=== PATIENT | female | born 1965 | race Hispanic/Latino ===

== ENCOUNTER → 2019-02-27 | Outpatient (CLI) | payer OTHER ==
[~2019-02-27] MED LIST: REGADENOSON 0.4 MG/5 ML SYR IV ONE
== END ==
LOC: NM 08:41
PROVIDERS: ATTEND Internal Medicine Interventional Cardiology
DX: I20.9 Angina pectoris, unspecified (principal)
CPT/HCPCS: 78452; 93017; A9502; J2785

== ENCOUNTER 2019-07-16 16:13 | Inpatient (IN) | payer OTHER ==
[~2019-07-16] VITALS: Ht 162.6 cm; Wt 156.0 kg
[2019-07-16] MEDS ORDERED: ASPIRIN 81 MG CHEW TAB PO ONE ×2 (17:00→19:15)
[2019-07-16 17:17] LABS: BASOPHILS # (AUTO) 0.1 (0.0-0.1); BASOPHILS % 0.4 % (0.0-1.0); EOSINOPHILS # (AUTO) 0.3 (0.0-0.4); EOSINOPHILS % 1.4 % (0.0-6.0); HEMATOCRIT 45.3 % (34.2-44.1); HEMOGLOBIN 14.7 g/dL (12.0-16.0); LYMPHOCYTES # (AUTO) 3.3 (1.0-3.2); LYMPHOCYTES % 17.1 % (18.0-39.1); MEAN CORPUSCULAR HEMOGLOBIN 29.5 pg (28-32); MEAN CORPUSCULAR HGB CONC 32.5 g/dL (31-35); MONOCYTES # (AUTO) 1.3 (0.2-0.8); MONOCYTES % 6.8 % (4.4-11.3); NEUTROPHILS # (AUTO) 14.3 (2.1-6.9); NEUTROPHILS % 73.6 % (38.7-80.0); PLATELET COUNT 378 x10e3/uL (140-360); RED BLOOD COUNT 4.98 x10e6/uL (3.6-5.1); RED CELL DISTRIBUTION WIDTH 14.2 % (11.7-14.4)
[2019-07-16 17:20] LABS: BILIRUBIN,URINE NEGATIVE (NEGATIVE); CLARITY,URINE SL CLOUDY (CLEAR); COLOR,URINE YELLOW (YELLOW); KETONES,URINE NEGATIVE (NEGATIVE); LEUKOCYTE ESTERASE ,URINE NEGATIVE (NEGATIVE); NITRITE,URINE NEGATIVE (NEGATIVE); PROTEIN,URINE DIPSTICK NEGATIVE (NEGATIVE); URINE UROBILINOGEN 1 mg/dL (0.2 - 1)
[2019-07-16 17:22] LABS: INR 0.93; PARTIAL THROMBOPLASTIN TIME 28.1 seconds (23.8-35.5)
[2019-07-16 17:30] LABS: ALANINE AMINOTRANSFERASE 26 IU/L (0-55); ALBUMIN 3.1 g/dL (3.5-5.0); ALBUMIN/GLOBULIN RATIO 0.7 (0.8-2.0); ALKALINE PHOSPHATASE 73 IU/L (40-150); ANION GAP 11.8 mmol/L (8-16); BLOOD UREA NITROGEN 11 mg/dL (7-26); BUN/CREATININE RATIO 10 (6-25); CALCIUM 10.2 mg/dL (8.4-10.2); CARBON DIOXIDE 29 mmol/L (22-29); CHLORIDE 99 mmol/L (98-107); CREATINE KINASE 198 IU/L (29-168); CREATININE, SERUM 1.09 mg/dL (0.57-1.11); EST GLOMERULAR FILTRATION RATE 53 ML/MIN (60-); GLUCOSE 131 mg/dL (74-118); POTASSIUM 3.8 mmol/L (3.5-5.1); SODIUM 136 mmol/L (136-145)
[2019-07-16 17:34] LABS: BACTERIA,URINE MANY /HPF; EPITHELIAL CELLS,URINE MODERATE /LPF
--- NOTE | 2019-07-16 18:11 | Diagnostic Imaging Report ---
Examination: Single AP view of the chest. COMPARISON: None. INDICATION: Chest pain DISCUSSION: Lines/tubes: None. Lungs: The lungs are well inflated and clear. No pneumonia or pulmonary edema. Pleura: No pleural effusion or pneumothorax. Heart and mediastinum: The heart and the mediastinum are unremarkable. Bones and soft tissues: No acute bony abnormalities. IMPRESSION: 1. No acute cardiopulmonary abnormalities. Signed by: Dr. Gamaliel Stinson M.D. on 07/16/2019 6:08 PM
[2019-07-16] MEDS ORDERED: ONDANSETRON HCL INJ 2MG/ML 2ML 2 MG/ML VIAL IV PRN (19:15)
[2019-07-16] MEDS: SODIUM CHLORIDE 0.9% 1000ML 1,000 ML IV SCH (20:12)
--- NOTE | 2019-07-16 23:55 | NUR ---
PT PLACED ON HOSPITAL BED FOR COMFORT AND PRESSURE ULCER PREVENTION.
[2019-07-17] VITALS (7 sets, daily range): BP systolic 101–114; BP diastolic 56–69
--- NOTE | 2019-07-17 00:03 | NUR ---
CALLED GAMING CASHIER TO CALL DOPPLER
--- NOTE | 2019-07-17 01:11 | NUR ---
LIFE MANAGER AT BEDSIDE FOR LT WRIST ARTERIAL DOPPLER SONOGRAM AT THIS TIME.
[2019-07-17 03:56] LABS: CREATINE KINASE 173 IU/L (29-168)
--- NOTE | 2019-07-17 06:28 | Diagnostic Imaging Report ---
Examination: Single AP view of the chest. COMPARISON: 07/16/2019. INDICATION: Chest pain DISCUSSION: Lines/tubes: None. Lungs: Bilateral hypoinflation with crowding of the pulmonary vasculature. No pneumonia or pulmonary edema. Pleura: No pleural effusion or pneumothorax. Heart and mediastinum: The heart and the mediastinum are magnified by portable technique and suboptimal inspiration. Bones and soft tissues: No acute bony abnormalities. Degenerative changes in the thoracic spine. IMPRESSION: 1. No acute thoracic abnormality allowing for limitations of portable technique and suboptimal inspiration. Signed by: Dr. Opal Berry M.D. on 07/17/2019 6:24 AM
[2019-07-17 07:24] LABS: BASOPHILS # (AUTO) 0.1 (0.0-0.1); BASOPHILS % 0.7 % (0.0-1.0); EOSINOPHILS # (AUTO) 0.4 (0.0-0.4); EOSINOPHILS % 2.8 % (0.0-6.0); HEMATOCRIT 44.2 % (34.2-44.1); HEMOGLOBIN 14.1 g/dL (12.0-16.0); LYMPHOCYTES # (AUTO) 3.5 (1.0-3.2); LYMPHOCYTES % 24.5 % (18.0-39.1); MEAN CORPUSCULAR HGB CONC 31.9 g/dL (31-35); MEAN CORPUSCULAR VOLUME 90.9 fL (81-99); MONOCYTES # (AUTO) 1.1 (0.2-0.8); MONOCYTES % 7.4 % (4.4-11.3); NEUTROPHILS # (AUTO) 9.1 (2.1-6.9); PLATELET COUNT 344 x10e3/uL (140-360); RED BLOOD COUNT 4.86 x10e6/uL (3.6-5.1); RED CELL DISTRIBUTION WIDTH 14.1 % (11.7-14.4)
[2019-07-17 07:37] LABS: INR 0.95; PROTHROMBIN TIME 13.2 seconds (11.9-14.5)
[2019-07-17 07:38] LABS: PARTIAL THROMBOPLASTIN TIME 30.4 seconds (23.8-35.5)
[2019-07-17 07:44] LABS: CREATINE KINASE 177 IU/L (29-168)
[2019-07-17 08:09] LABS: ANION GAP 11.8 mmol/L (8-16); BLOOD UREA NITROGEN 9 mg/dL (7-26); BUN/CREATININE RATIO 10 (6-25); CARBON DIOXIDE 25 mmol/L (22-29); CHLORIDE 103 mmol/L (98-107); CREATININE, SERUM 0.87 mg/dL (0.57-1.11); EST GLOMERULAR FILTRATION RATE > 60 ML/MIN (60-); GLUCOSE 112 mg/dL (74-118); POTASSIUM 3.8 mmol/L (3.5-5.1); SODIUM 136 mmol/L (136-145)
[2019-07-17] MEDS ORDERED: GABAPENTIN800 MG (08:11)
[2019-07-17] MEDS: SODIUM CHLORIDE 0.9% 1000ML 1,000 ML IV SCH ×2 (08:25→20:55)
--- NOTE | 2019-07-17 14:50 | NUR ---
Visit made by the Spiritual Care Department Pastoral Visitor, Dottie Linda. PV provided pastoral presence, prayer, hospitality, and supportive listening. Pastoral Visitor informed pt/family of the scope of [employer] and availability. VAMSHI MENDEZ [employer] Spiritual Care Department O: [phone] Pager: [phone] ([phone] number calling from)
--- NOTE | 2019-07-17 15:26 | History and Physical ---
HISTORY OF PRESENT ILLNESS: Paola Mills is a 53-year-old female, past medical history positive for peripheral vascular disease, hypertension, obesity, and smoker, came with chest pain. She had an adenosine Cardiolite done sometime in February. According to Dr. Balderas, Cardiology, she was normal. She also have pain in the left index finger with some bluish discoloration. REVIEW OF SYSTEMS: CARDIOVASCULAR: She has chest pain. No palpitation. RESPIRATORY: No shortness of breath. No cough. GASTROINTESTINAL: No nausea or vomiting. No diarrhea. GENITOURINARY: No frequency. No dysuria. ALLERGIES: NOT ALLERGIC TO ANYTHING. PAST MEDICAL HISTORY: Peripheral vascular disease, status post right femoral-popliteal bypass on the right leg. Also, history of hypertension, smoker. SOCIAL HISTORY: She smokes. She does not drink. PHYSICAL EXAMINATION: HEART: Showed regular rhythm. Normal S1 and S2 sound. LUNGS: Clear bilaterally. ABDOMEN: Soft. EXTREMITIES: Show the cold left index finger. Pulses are 2+ on the radial arteries. LABORATORY DATA: On the BMP; sodium 136, potassium 3.8, chloride 103, CO2 25, BUN 9, creatinine 0.87, and glucose 112. On the CBC; white blood count 14,200, hemoglobin 14.1, hematocrit 44.2, and platelet count 344,000. PT 13.2, INR 0.95, and PTT 30.4. AST 18, ALT 25, total bilirubin 0.5, and alkaline phosphatase 73. Arterial Doppler left upper extremity showed no significant arterial stenosis. EKG was essentially normal sinus rhythm. No evidence of any ST-segment elevation or depression. Also, cardiac enzymes x2 are completely negative. FINAL IMPRESSION: 1. Atypical chest pain with a negative stress test done in February. 2. Ischemic left index finger. 3. Peripheral vascular disease, status post femoral-popliteal bypass in the right leg. 4. Obesity. 5. Smoker. 6. Hypertension. PLAN OF TREATMENT: Continue sodium chloride. Continue Zofran 4 mg IV q.4 hours as needed. We are going to resume home medication. We are going to consult Dr. Moffett for Cardiology. She is going to need a CT angiogram of the left upper extremity. Antiplatelet agents and statins are also going to be restarted that she was taking at home. MD THONY Copeland/[place] /[id number]
[2019-07-17] MEDS ORDERED: HEPARIN SOD (PORCINE) 5,000 UNIT/ML VIAL IV NR (16:45)
[2019-07-17] MEDS: HEPARIN 25,000 UNIT 1,000 UNIT in DEXTROSE 5% 250ML 250 ML IV SCH (18:16)
--- NOTE | 2019-07-17 18:43 | NUR ---
RECEIVED REPORT FROM PREVIOUS NURSE. CALL LIGHT WITHIN REACH. PATIENT IN BED.
--- NOTE | 2019-07-17 19:20 | NUR ---
PATIENT LEFT VIA WHEELCHAIR FOR CTA OF LEFT POINTER FINGER. PATIENT IN NO PAIN OR DISTRESS.
--- NOTE | 2019-07-17 19:25 | NUR ---
PATIENT ARRIVED BACK TO ROOM VIA WHEELCHAIR. PATIENT IN NO PAIN OR DISTRESS
--- NOTE | 2019-07-17 20:38 | Diagnostic Imaging Report ---
TECHNIQUE: Computed tomography angiography of the left upper extremity was performed WITHOUT injected contrast. Dose modulation, iterative reconstruction, and/or weight based adjustment of the mA/kV was utilized to reduce the radiation dose to as low as reasonably achievable. COMPARISON: None available. HISTORY: Ischemic digits FINDINGS: The ascending aorta arch and descending aorta are unremarkable. High-grade narrowing of the proximal left proximal subclavian artery on axial image 260 secondary to atherosclerotic disease. The axillary and brachial arteries are unremarkable. The radial and ulnar arteries are unremarkable to the level of the distal forearm. The radial artery distally appears patent. The ulnar artery at the level of the carpus is poorly opacified. Evaluation of the palmar arches and distal aspects of the digital arteries is limited. IMPRESSION: High-grade stenosis due to atherosclerotic disease of the proximal left subclavian artery. The remainder of the left upper extremity vessels are unremarkable with the exception of the distal left ulnar artery at the level of the carpus which is poorly opacified. Signed by: Dr. Gamaliel Stinson M.D. on 07/17/2019 8:34 PM
[2019-07-17] MEDS: ATORVASTATIN 40 MG TAB PO SCH (20:51)
--- NOTE | 2019-07-17 21:20 | NUR ---
GAVE REPORT TO THE NURSE IN ROOM 102. PATIENT IS A&OX3. PATIENT IN NO DISTRESS OR PAIN. PATIENT LEFT TO ROOM 102 VIA WHEELCHAIR WITH HER BELONGINGS.
--- NOTE | 2019-07-17 21:20 | NUR ---
RECEIVED PATIENT. PATIENT CAME VIA WHEELCHAIR, AMBULATED TO BED, STEADY GAIT NOTED. L HAND 20G RUNNING HEPARIN AT 10 ML/HR. R HAND 20G Addendum: 07/17/19 at 2326 by Keren Briseno RN R HAND 20G IV ASYMPTOMATIC, INTACT, AND PATENT RUNNING NS AT 75ML/HR. LUNG SOUNDS CLEAR, BOWEL SOUNDS ACTIVE. NO EDEMA NOTED. PEDAL FOOT PULSES PALPABLE. SKIN INTACT. L POINTER FINGER PALPABLY COOLER THAN OTHER FINGERS, BUT COLORING IS NORMAL. NO PAIN REPORTED, NO CP REPORTED. NO S&S OF DISTRESS NOTED. BED LOCKED IN LOWEST POSITION, SIDE RIALS UPX2, CALL LIGHT IN REACH.
[2019-07-17] MEDS ORDERED: IOPAMIDOL 370 MG/ML 200 ML INFUS..BTL INJ ONE (22:19)
[2019-07-17] MEDS ORDERED: SODIUM CHLORIDE 0.9% 100 ML 100 ML ONE (22:19)
--- NOTE | 2019-07-17 22:31 | NUR ---
SPOKE WITH MD VIZCAINO CONCERNING RESULTS OF CTA SCAN FOR LUE. MD VIZCAINO GAVE NO NEW ORDERS AND STATED HE WOULD ASSESS IT IN THE MORNING.
[2019-07-18] VITALS (8 sets, daily range): BP systolic 101–132; BP diastolic 55–78
--- NOTE | 2019-07-18 00:33 | Consultation ---
DATE OF CONSULTATION: 07/17/2019 Cardiology Consultation REQUESTING PHYSICIAN: Markus Valle MD REASON FOR CONSULTATION: Chest pain. HISTORY OF PRESENT ILLNESS: This is a 53-year-old woman with history of hypertension, hyperlipidemia, peripheral arterial disease with prior right femoral-popliteal bypass, who presents with complaints of chest pain. She reports she began having chest pain on Tuesday night. This was on the right side of her chest. The patient reports she began having right-sided chest pain on Tuesday night, she described as sharp, 8/10 in severity without shortness of breath, nausea, diaphoresis. She states she took an aspirin 325 mg with resolution of her chest pain after approximately 10 minutes. On Tuesday, she noted her left hand began to feel painful and cool. She suddenly developed left-sided chest pain, which she described as tightness, 4/10 in severity, lasting approximately 2 hours. She denies any shortness of breath, nausea, or diaphoresis. She denies any edema orthopnea or PND. She presented to the ER for further evaluation. Of note, the patient had a normal nuclear stress test February of this year at this hospital. REVIEW OF SYSTEMS: Negative except as per HPI. PAST MEDICAL HISTORY: 1. Hypertension. 2. Hyperlipidemia. 3. Peripheral arterial disease with prior right femoral-popliteal bypass. 4. Tobacco use. PAST SURGICAL HISTORY: Right femoral-popliteal bypass. ALLERGIES: PLEASE SEE EMR. MEDICATIONS: Please see medication list. SOCIAL HISTORY: Smokes approximately two packs a week for the last 30 years and drinks alcohol occasionally. FAMILY HISTORY: Pertinent for mother with heart failure and three-vessel CABG. PHYSICAL EXAMINATION: VITAL SIGNS: Temperature 98.4 degrees, pulse 84, respiratory rate 21, blood pressure 108/56, oxygen saturation 95% on room air. GENERAL: Morbidly obese woman, no acute distress. HEENT: Normocephalic, atraumatic. Pupils equal. No scleral icterus. NECK: Supple. No thyromegaly or cervical lymphadenopathy. No carotid bruits. LUNGS: Clear to auscultation bilaterally. No wheezes or crackles. CARDIOVASCULAR: Normal rate, regular rhythm. No murmur. Normal S1, S2. ABDOMEN: Soft, nontender. EXTREMITIES: No edema. Slight discoloration of her left index finger, which is slightly cool to palpation. NEUROLOGIC: Nonfocal exam. LABORATORY DATA: WBC 14.21, hemoglobin 14.1, hematocrit 44.2, platelets 344. Sodium 136, potassium 3.8, chloride 103, CO2 25, BUN 9, creatinine 0.87. Troponin less than 0.001. EKG, normal sinus rhythm, normal ECG. IMPRESSION: 1. Telemetry, normal sinus rhythm. 2. Atypical chest pain. 3. Ischemic left index finger. 4. Peripheral arterial disease with prior right femoral-popliteal bypass, now known to be occluded without option for intervention. 5. Hypertension. 6. Hyperlipidemia. 7. Tobacco use. RECOMMENDATIONS: The patient ruled out for myocardial infarction with serial cardiac biomarkers. Given atypical chest pain and normal nuclear stress test in February, no further ischemic evaluation is indicated at this time. Left upper extremity arterial Doppler was reviewed. Triphasic waveforms were present to the level of the radial and ulnar arteries, cannot exclude small vessel disease. Obtain CTA of the left upper extremity for further evaluation. Continue home cardiac medications. Check fasting lipid panel. We will start the patient on heparin in the interim. Start aspirin. Obtain fasting lipid panel. Further recommendations pending test results. Thank you for this consult. We will continue to follow. Talisha Balderas MD ABS/MODL /[id number]
--- NOTE | 2019-07-18 00:52 | NUR ---
PTT NOTED AT 32.3. HEPARIN INCREASED BY 2OO UNITS, TO 12 ML/HR. RECHECK PTT AT 0650.
[2019-07-18 05:20] LABS: BASOPHILS # (AUTO) 0.1 (0.0-0.1); BASOPHILS % 0.6 % (0.0-1.0); EOSINOPHILS # (AUTO) 0.4 (0.0-0.4); HEMATOCRIT 43.6 % (34.2-44.1); HEMOGLOBIN 13.8 g/dL (12.0-16.0); LYMPHOCYTES # (AUTO) 3.2 (1.0-3.2); LYMPHOCYTES % 25.4 % (18.0-39.1); MEAN CORPUSCULAR HEMOGLOBIN 28.8 pg (28-32); MEAN CORPUSCULAR HGB CONC 31.7 g/dL (31-35); MEAN CORPUSCULAR VOLUME 90.8 fL (81-99); MONOCYTES # (AUTO) 0.9 (0.2-0.8); MONOCYTES % 6.7 % (4.4-11.3); NEUTROPHILS # (AUTO) 8.1 (2.1-6.9); NEUTROPHILS % 63.6 % (38.7-80.0); PLATELET COUNT 328 x10e3/uL (140-360)
--- NOTE | 2019-07-18 05:59 | NUR ---
PTT NOTED TO BE 35.5. INCREASED BY 200 UNITS TO 14ML/HR PER PROTOCOL. REDRAW PTT AT 1200.
[2019-07-18] MEDS: ASPIRIN 81 MG ENTERIC COATED PO SCH (07:53)
[2019-07-18] MEDS: GABAPENTIN 400 MG CAP PO SCH ×2 (09:57→16:23)
[2019-07-18] MEDS: SODIUM CHLORIDE 0.9% 1000ML 1,000 ML IV SCH ×2 (11:51→23:51)
--- NOTE | 2019-07-18 12:26 | Progress Note ---
DATE: Internal Medicine Progress Note SUBJECTIVE: The patient is doing well except for the pain on the left index finger. She was found to have stenosis on the left subclavian artery and also left ulnar artery. PHYSICAL EXAMINATION: VITAL SIGNS: The blood pressure 126/75, temperature 97.1, heart rate 90 per minute, respiratory rate 19 per minute, oxygen saturation 98%. HEART: Regular rhythm. Normal S1, S2 sound. LUNGS: Clear bilaterally. ABDOMEN: Soft. EXTREMITIES: Showed the coldness on the left index finger. LABORATORY DATA: On the BMP; sodium 136, potassium 3.8, chloride 103, CO2 35, BUN 9, creatinine 0.87, glucose of 112. On CBC; white blood count [id number], hemoglobin 13.8, hematocrit 43.6, platelet count is 328,000. PT 13.2, PTT 35.5, INR 0.95. AST 18, ALT 26, total bilirubin 0.5, alkaline phosphatase of 73. IMPRESSION: 1. Left subclavian artery stenosis. 2. Left coronary artery stenosis. 3. Atypical chest pain. 4. Hypercholesterolemia. 5. Neuropathy. PLAN OF TREATMENT: Cardiology will decide about the catheterization and possible angioplasty of left subclavian artery and coronary artery. Continue Lipitor 40 mg daily, aspirin 81 mg daily, Zofran 4 mg IV q.4 hours as needed. MD THONY Copeland/[place] /[id number]
--- NOTE | 2019-07-18 12:42 | NUR ---
INCREASED HEPARIN TO 16CCHR AT THIS
[2019-07-18] MEDS: HEPARIN 25,000 UNIT 1,000 UNIT in DEXTROSE 5% 250ML 250 ML IV SCH (16:58)
--- NOTE | 2019-07-18 19:00 | NUR ---
RECEIVED PATIENT IN BEDSIDE SHIFT REPORT. PATIENT RESTING IN BED AT THIS TIME. NO PAIN REPORTED. NO S&S OF DISTRESS NOTED. BED LOCKED IN LOWEST POSITION, SIDE RAILS UPX2, CALL LIGHT IN REACH. R AC 20G IV ASYMPTOMATIC, INTACT, AND PATENT. NS @ 75 ML/HR, HEPARIN AT 16 ML/HR.
--- NOTE | 2019-07-18 19:37 | NUR ---
PTT NOTED TO BE 44.3, INCREASED BY 100 UNITS/HR TO 17 ML/HR. RECHECK PTT AT MIDNIGHT.
--- NOTE | 2019-07-18 20:09 | Progress Note ---
DATE: 07/18/2019 Cardiology progress note SUBJECTIVE: The patient denies chest pain or shortness of breath. OBJECTIVE: VITAL SIGNS: Temperature 96.7 degrees, pulse 78, respiratory rate 17, blood pressure 132/70, and oxygen saturation 95% on room air. GENERAL: Awake, alert, in no acute distress. LUNGS: Clear to auscultation bilaterally. No wheeze or crackles. CARDIOVASCULAR: Normal rate. Regular rhythm. No murmur. Normal S1, S2. ABDOMEN: Soft, nontender. EXTREMITIES: No edema. A slight coolness to palpation of the left index finger, faintly discolored. CARDIAC MEDICATIONS: 1. Heparin drip. 2. Aspirin 81 mg p.o. daily. 3. Atorvastatin 40 mg p.o. at bedtime. LABORATORY DATA: WBC 12.72, hemoglobin 13.8, hematocrit 43.6, and platelets 328. LDL 149, HDL 24, cholesterol 96, triglycerides 117. Telemetry, normal sinus rhythm. IMPRESSION: 1. Ischemic left index finger. 2. Left subclavian artery stenosis. 3. Peripheral arterial disease with prior right femoral-popliteal bypass, now known to be occluded with the option for intervention. 4. Hypertension. 5. Hyperlipidemia. 6. Tobacco use. RECOMMENDATIONS: The patient is ruled out for myocardial portion on serial cardiac biomarkers. Given atypical chest pain and normal nuclear stress test in February. No further ischemic evaluation is indicated at this time. No further cardiac evaluation indicated at this time. CTA of the left upper extremity was noted to have stenosis of the proximal left subclavian artery. However, carotid Dopplers indicate vertebral arteries antegrade on the left. Intervention would present risk for embolization to the vertebral territories. Keep on heparin drip for now. Continue current cardiac medications. We will attempt to manage conservatively. Thank you for this consult. We will continue to follow. Talisha Balderas MD [facility] /[id number]
[2019-07-18] MEDS: ATORVASTATIN 40 MG TAB PO SCH (20:15)
[2019-07-19] VITALS: BP 110/54
[2019-07-19] MEDS ORDERED: HEPARIN 25,000 UNIT DRIP IV ONE (00:07)
--- NOTE | 2019-07-19 00:48 | NUR ---
PTT NOTED TO BE 47.6. INCREASE BY 100UNITS/HR TO 18ML/HR. RECHECK PTT AT 0600.
[2019-07-19] MEDS: HEPARIN 25,000 UNIT 1,000 UNIT in DEXTROSE 5% 250ML 250 ML IV SCH (02:22)
[2019-07-19 04:00] VITALS: BP 109/58
[2019-07-19 05:52] LABS: BASOPHILS # (AUTO) 0.1 (0.0-0.1); BASOPHILS % 0.6 % (0.0-1.0); EOSINOPHILS # (AUTO) 0.6 (0.0-0.4); HEMATOCRIT 44.3 % (34.2-44.1); HEMOGLOBIN 14.1 g/dL (12.0-16.0); LYMPHOCYTES # (AUTO) 4.4 (1.0-3.2); LYMPHOCYTES % 27.5 % (18.0-39.1); MEAN CORPUSCULAR HGB CONC 31.8 g/dL (31-35); MONOCYTES # (AUTO) 0.9 (0.2-0.8); MONOCYTES % 5.8 % (4.4-11.3); NEUTROPHILS # (AUTO) 9.8 (2.1-6.9); NEUTROPHILS % 61.5 % (38.7-80.0); PLATELET COUNT 359 x10e3/uL (140-360); RED BLOOD COUNT 4.87 x10e6/uL (3.6-5.1); RED CELL DISTRIBUTION WIDTH 14.1 % (11.7-14.4)
--- NOTE | 2019-07-19 05:58 | NUR ---
PTT NOTED TO BE 55.3, WHICH IS THERAPEUTIC PER PROTOCOL. HEPARIN TO REMAIN AT 18 ML/HR. RECHECK AT 1200.
[2019-07-19 07:29] VITALS: BP 129/62
[2019-07-19 07:39] VITALS: BP 129/65
[2019-07-19] MEDS: GABAPENTIN 400 MG CAP PO SCH ×2 (07:46→16:38)
[2019-07-19] MEDS: ASPIRIN 81 MG ENTERIC COATED PO SCH (07:46)
[2019-07-19] MEDS ORDERED: ONDANSETRON HCL 4 MG ORAL DISINTEGRATING TAB PO PRN (08:15)
--- NOTE | 2019-07-19 10:43 | Progress Note ---
DATE: Internal Medicine Progress Note SUBJECTIVE: The patient is doing well. PHYSICAL EXAMINATION: VITAL SIGNS: Blood pressure 129/65, temperature 98.5, heart rate 79 per minute, respiratory rate 16 per minute, and oxygen saturation 99%. HEART: Regular rhythm. Normal S1, S2 sound. LUNGS: Clear bilaterally. EXTREMITIES: She has coolness on the index finger. LABORATORY DATA: On the BMP; sodium 136, potassium 3.8, chloride 103, CO2 of 25, BUN 9, creatinine 0.87, glucose of 112. On CBC, white blood count 15,800, hemoglobin 14.1, hematocrit 44.3, and platelet count 359,000. PT 13.2, INR 0.95, PTT 55.3. AST 18, ALT 26. Total bilirubin 0.5, alkaline phosphatase 73. IMPRESSION: 1. Atypical chest pain with a negative stress test in the past. She does have also left subclavian stenosis and left ulnar stenosis also. 2. History of neuropathy. 3. Hypercholesterolemia. 4. Peripheral vascular disease with occluded right femoral-popliteal bypass. 5. Smoker. 6. Hypertension. PLAN OF TREATMENT: She is on heparin drip right now, conservative treatment recommended by hat blocking operator due to the risk of embolization if she had an angioplasty of neck and subclavian artery. Continue normal saline 75 mL an hour, Lipitor 40 mg daily, aspirin 81 mg daily, gabapentin 100 mg twice a day, Zofran 4 mg IV q.4 hours as needed. Cardiology will decide further treatment. MD THONY Copeland/[place] /[id number]
[2019-07-19 11:58] VITALS: BP 132/73
--- NOTE | 2019-07-19 12:06 | NUR ---
PTT BACK AT 49 INCREASED RATE TO 19CC/HR
--- NOTE | 2019-07-19 14:12 | NUR ---
CC: Paliative Care Consult for Smoking Cessation HPI-This is a 53 yo HF who was admitted 07/16/19 c/o chest pain. She was evaluated, admitted to telemetry and now her condition is rated as stable. She h as a long hx of smoking- began around 18yoa, currently smoking less than 1/2PPD. Has previously attempted smoking many times, longest period of cessation was about 6 months. She is interested in quiting tobacco. ROS- Presently denies any dyspnea, pain-0/10, depression, constipation, weakness, n/v/f/d, blurred vision, ANN. PMH- HTN, arterial bypass, Anemia Surgeries- CS, Uterine Ablation Meds-reveiwed Allergies- KNDA Social- hx of tobacco since 18 yoa, lives at home with family, Social ETOH use FH- DM, HTN, Heart Disease Code Status- Full VS 97.6, 79, 18, 132/73, 02 sat 96% GA NAD Obese, HEENT- negative, neck supple, lung clear no w/r/r, hs rrr no m/r/g. NO jvd, hjr, notede. Abd + bs nontender, MSK- [place], Skin Warm and dry. PPS 40-50% Labs and Meds reviewed. 1.Chest Pain- now resolved 2. Tobacco Use- discussed smoking cessation, use of nicotine patches and gums, making healthy life style choices. She indicates that she has patches at home but has never used. We discussed how and when to use patches, side effects, etc. 3. Recommendations- She continues to states that she would like to quit smoking- I have provided positive reinforcement-suggested follow with PCP, counseling for stress reduction, etc.
--- NOTE | 2019-07-19 14:25 | NUR ---
discussed in rounds, patient has dc order pending cardiology. patient continues on heparin drip, will start on eliquis and dc home tonight
--- NOTE | 2019-07-19 14:35 | Progress Note ---
DATE: 07/19/2019 Cardiology Progress Note SUBJECTIVE: The patient denies chest pain or shortness of breath. She states her finger is improved. OBJECTIVE: VITAL SIGNS: Temperature 97.6 degrees, pulse 79, respiratory rate 18, blood pressure 132/73, oxygen saturation 96% on room air. GENERAL: Awake, alert, no acute distress. LUNGS: Clear to auscultation bilaterally. No wheeze or crackles. CARDIOVASCULAR: Normal rate, regular rhythm. No murmur. Normal S1, S2. ABDOMEN: Soft, nontender. EXTREMITIES: No edema. CARDIAC MEDICATIONS: Aspirin 81 mg p.o. daily, heparin drip, atorvastatin 40 mg p.o. at bedtime. LABORATORY DATA: WBC 15.86, hemoglobin 14.1, hematocrit 44.3, platelets 359. Cholesterol 96, LDL 49, HDL 24, triglycerides 117. TELEMETRY: Normal sinus rhythm. IMPRESSION: 1. Atypical chest pain with negative stress test. 2. Peripheral artery disease with left subclavian stenosis and history of right femoral-popliteal bypass known to be occluded without option for intervention. 3. Hypertension. 4. Hyperlipidemia. 5. Tobacco use. RECOMMENDATIONS: The patient ruled out for myocardial infarction with serial cardiac biomarkers given atypical chest pain. Normal nuclear stress test in February. No further ischemic evaluation is indicated at this time. CTA of the left upper extremity was noted to have stenosis of the proximal left subclavian artery. However, carotid Doppler indicate vertebral artery is antegrade on the left. Intervention would present risk for embolization to the vertebral territories. Continue medical management with anticoagulation and aspirin as patient reports her finger is improving. We will manage conservatively. Please have patient follow up with Dr. Moffett in two weeks. Talisha Balderas MD [facility] /[id number]
[2019-07-19] MEDS: SODIUM CHLORIDE 0.9% 1000ML 1,000 ML IV SCH (14:44)
[2019-07-19 16:07] VITALS: BP 120/59
[2019-07-19] MEDS ORDERED: APIXAB 2.5 MG TABLET PO ONE (16:15)
[2019-07-19] MEDS ORDERED: APIXABAN 5 MG TABLET PO ONE (16:30)
--- NOTE | 2019-07-19 17:41 | Discharge Summary ---
HOSPITAL COURSE: A 53-year-old female with past medical history positive for smoking and also polyneuropathy. The patient came here with chest pain. Cardiac enzymes were negative. Apparently, she had a stress test done in February was negative. The patient was seen by pest control technician, started heparin drip due to a left subclavian artery stenosis and left ulnar artery stenosis, but because of recent angiogram and possible angioplasty are very high, to prefer having a stroke, Cardiology recommended conservative medical treatment, which is Dr. Balderas. The patient might be able to go home today. PHYSICAL EXAMINATION: HEART: Regular rhythm. Normal S1, S2 sounds. LUNGS: Clear bilaterally. IMPRESSION: 1. Left subclavian artery stenosis. 2. Left ulnar artery stenosis. 3. Atypical chest pain. 4. Polyneuropathy. 5. History of smoking. PLAN OF TREATMENT: The patient is going to be discharged on aspirin 81 mg daily, Lipitor 40 mg daily, gabapentin 800 mg twice a day or any other anticoagulation recommended by Dr. Balderas, pest control technician. Follow up with the primary care physician in a week. The patient is advised to quit smoking. MD THONY Copeland/[place] /[id number]
[2019-07-19] MEDS ORDERED: eliquis PO (18:32)
[2019-07-19] MEDS ORDERED: ASPIR 8181 MG PO (18:41)
[2019-07-19] MEDS ORDERED: LIPITOR20 MG PO (18:41)
--- NOTE | 2019-07-19 18:57 | NUR ---
DISCHARGE INSTRUCTIONS AND PRESCRIPTIONS GIVEN PT VERBALIZED UNDERSTANDING IV DC PRESSURE DRESSING APPLIED AND TAPED PT IS READY TO DC HOME
--- NOTE | 2019-07-19 19:03 | NUR ---
PT OFF UNIT TO HOME AT THIS TIME
== END 2019-07-19 19:03 | disposition home or self-care (01) | DRG 300 ==
LOC: ER 16:13 → ERHOLD 20:50 → IMCU 07-17 07:56 → MED/SURG 07-17 21:22 → OBSVTOIN 07-18 14:30
PROVIDERS: ADMIT Internal Medicine; ATTEND Internal Medicine
DX: I70.208 Unspecified atherosclerosis of native arteries of extremities, other extremity (principal); Z68.43 Body mass index [BMI] 50.0-59.9, adult; R07.89 Other chest pain; I10 Essential (primary) hypertension; D64.9 Anemia, unspecified; Z95.820 Peripheral vascular angioplasty status with implants and grafts; Z83.3 Family history of diabetes mellitus; Z82.49 Family history of ischemic heart disease and other diseases of the circulatory system; E66.9 Obesity, unspecified; F17.210 Nicotine dependence, cigarettes, uncomplicated; I99.8 Other disorder of circulatory system; I25.10 Atherosclerotic heart disease of native coronary artery without angina pectoris; G62.9 Polyneuropathy, unspecified
CPT/HCPCS: 36415; 71045; 73206; 80048; 80053; 80061; 81001; 82550; 82553; 82948; 83605; 83880; 84484; 85025; 85610; 85730; 87040; 93005; 93880; 93931; 99284; G0378; J1644; J7030; Q9967